=== PATIENT | female | born 1960 | race African-American/Black ===

== ENCOUNTER 2018-10-12 16:10 | Emergency (ER) | payer MEDICAID ==
[~2018-10-12] VITALS: Ht 160 cm; Wt 56.0 kg
[~2018-10-12 16:10] MED LIST: LITH300C3 PO; QUET200T PO; SERT50TA PO
[2018-10-12] MEDS ORDERED: METOCLOPRAMIDE HCL 10MG/2ML VIAL IV ONE (23:30)
[2018-10-12] MEDS ORDERED: DIPHENHYDRAMINE 50MG/ML VIAL IV ONE (23:30)
[2018-10-13] MEDS ORDERED: KETOROLAC 30MG/ML VIAL IV ONE (00:30)
[2018-10-13 02:21] VITALS: BP 98/61
== END 2018-10-13 02:22 | disposition home or self-care (01) ==
LOC: ER 17:51
DX: R51 Headache (principal)
CPT/HCPCS: 70450; 96374; 96375; 99284; J1200; J1885; J2765; Z7610

== ENCOUNTER 2019-09-14 16:09 | Emergency (ER) | payer MEDICAID ==
[~2019-09-14] VITALS: Ht 160 cm; Wt 64.0 kg
[2019-09-15] MEDS: SODIUM CHLORIDE 0.9% 1,000 ML IV ONE (00:34)
[2019-09-15 00:35] LABS: BASOPHILS % 1.2 % (0.0-2.0); EOSINOPHILS % 0.1 % (0.0-5.0); HEMATOCRIT. 33.8 % (36.0-48.0); LYMPHOCYTES % 41.8 % (20.0-50.0); MEAN CORPUSCULAR HEMOGLOBIN 25.6 pg (28.0-32.0); MEAN CORPUSCULAR VOLUME 78.4 fL (81.0-99.0); MEAN PLATELET VOLUME 8.2 fl (7.4-10.4); MONOCYTES % 13.1 % (2.0-8.0); NEUTROPHILS % 43.8 % (40.0-76.0); PLATELET 212 x1000/uL (130-400); RED BLOOD CELL COUNT 4.31 mill/uL (4.2-5.4); RED CELL DISTRIBUTION WIDTH 16.6 % (11.6-14.6)
[2019-09-15] MEDS: METHYLPREDNISOLONE SOD SUCC 125 MG/2 ML VIAL IV STA (00:35)
[2019-09-15] MEDS: ALBUTEROL (0.083%) 2.5MG/3ML NEB HHN STA (00:35)
[2019-09-15] MEDS: KETOROLAC 30MG/ML VIAL IV STA (00:35)
[2019-09-15] MEDS: IPRATROPIUM BROMIDE (0.02%) 0.5MG/2.5ML NEB HHN STA (00:35)
[2019-09-15 00:39] LABS: CHLORIDE 111 mEq/L (98-107)
[2019-09-15] MEDS: OSELTAMIVIR 75MG CAPSULE PO ONE (02:23)
[2019-09-15 03:11] VITALS: BP 110/70
== END 2019-09-15 03:11 | disposition home or self-care (01) ==
LOC: ER 18:38
DX: J10.1 Influenza due to other identified influenza virus with other respiratory manifestations (principal); J45.901 Unspecified asthma with (acute) exacerbation; Z98.890 Other specified postprocedural states; Z79.899 Other long term (current) drug therapy
CPT/HCPCS: 36415; 71045; 80053; 85025; 87070; 87430; 87804; 93005; 96374; 96375; 99284; J1885; J2930; J7030; J7611